=== PATIENT | female | born 1955 | race Caucasian/White ===

== ENCOUNTER 2022-01-18 10:02 | Day surgery (SDC) | payer OTHER, SELFPAY ==
[2022-01-12 14:27] VITALS: BMI 22.4
--- NOTE | 2022-01-17 09:22 | HO.ANESPROP2 ---
Documented by User: Silvia Cifuentes NP 01/17/22 09:22 HPI - Anesthesia Eval Consult details Narrative: 66yo F for Colonoscopy [facility] Past Medical History Medical History (Updated 01/12/22 @ 14:28 by Suzan Zamora RN) Elevated cholesterol HTN (hypertension) Type 2 diabetes mellitus Surgical History Surgical History (Updated 01/12/22 @ 14:23 by Suzan Zamora RN) H/O colonoscopy History of History of pubovaginal sling Social History Social History (Updated 01/12/22 @ 14:23 by Suzan Zamora RN) Patient Tobacco Use Status: Former Tobacco user Quit Date: >10 yr ago Tobacco use type: Cigarette Use of substances other than those prescribed or required for medical reasons: No Are you DNR?: No Advance Directives: No Advance Directives Information Provided: Yes Recently lost weight without trying: No Nutrition Risks: No Nutritional Risk Meds Allergies Allergy/AdvReac Type Severity Reaction Status Date / Time No Known Allergies Allergy Verified 01/12/22 14:23 Home Medications Medication Instructions Recorded Confirmed Last Taken Type amlodipine 2.5 mg tablet 7.5 mg PO DAILY 01/12/22 01/12/22 01/18/22 History atorvastatin 40 mg tablet 40 mg PO BEDTIME 01/12/22 01/12/22 Unknown History calcium 01/12/22 Unknown History hydrochlorothiazide 25 mg tablet 25 mg PO DAILY 01/12/22 01/12/22 Unknown History iron 01/12/22 Unknown History metformin 500 mg tablet 1,000 mg PO BID 01/12/22 01/12/22 Unknown History multivitamin 1 tab PO DAILY 01/12/22 01/12/22 Unknown History potassium chloride 01/12/22 Unknown History Exam Exam Date and Time: January 17, 2022921 Height,Weight and Vital Signs: Height 5 ft 1 in Weight 53.977 kg Assessment and Plan Assessment Anesthesia Assessment: Chart Reviewed Documented by User: Buffy Anderson MD 01/18/22 11:26 [facility] Past Medical History Medical History (Updated 01/12/22 @ 14:28 by Suzan Zamora RN) Elevated cholesterol HTN (hypertension) Type 2 diabetes mellitus Family History Family history of problems with anesthesia: No Surgical History Surgical History (Updated 01/12/22 @ 14:23 by Suzan Zamora RN) H/O colonoscopy History of History of pubovaginal sling History of Problems with Anesthesia: No Social History Social History (Updated 01/12/22 @ 14:23 by Suzan Zamora RN) Patient Tobacco Use Status: Former Tobacco user Quit Date: >10 yr ago Tobacco use type: Cigarette Use of substances other than those prescribed or required for medical reasons: No Are you DNR?: No Advance Directives: No Advance Directives Information Provided: Yes Recently lost weight without trying: No Nutrition Risks: No Nutritional Risk Meds Allergies Allergy/AdvReac Type Severity Reaction Status Date / Time No Known Allergies Allergy Verified 01/12/22 14:23 Home Medications Medication Instructions Recorded Confirmed Last Taken Type amlodipine 2.5 mg tablet 7.5 mg PO DAILY 01/12/22 01/12/22 01/18/22 History atorvastatin 40 mg tablet 40 mg PO BEDTIME 01/12/22 01/12/22 Unknown History calcium 01/12/22 Unknown History hydrochlorothiazide 25 mg tablet 25 mg PO DAILY 01/12/22 01/12/22 Unknown History iron 01/12/22 Unknown History metformin 500 mg tablet 1,000 mg PO BID 01/12/22 01/12/22 Unknown History multivitamin 1 tab PO DAILY 01/12/22 01/12/22 Unknown History potassium chloride 01/12/22 Unknown History Exam Height,Weight and Vital Signs: Height 5 ft 1 in Weight 53.977 kg Vital Signs Temp Pulse Resp BP Pulse Ox O2 Del Method 01/18/22 11:09 97.1 F 90 16 161/87 H 96 Room Air Pertinent Lab Results Pertinent Lab Results: Lab Results 01/18/22 Range/Units 11:17 POC Glucose 112 (60-115) mg/dL Airway Mallampati Class: I TM Dist: >3cm Neck ROM: Full Loose/Missing/Broken Teeth: No (Per patient) Heart: RRR Lungs: CTAB Assessment and Plan Assessment Anesthesia Assessment: Anesthesia Plan Discussed Final Anesthetic Review Family History of Problems with Anesthesia: No History of Problems with Anesthesia: No NPO: Yes ASA Class: II Final Preanesthetic Review: No Changes in Pt Med Stat, Meds/Allgs Chart Reviewed, Consent Obtained/Reviewed and Anes Risks/Benef Reviewed Patient Risk: Low Procedure Risk: Low Assessment/Block/Sedation in SS: Assess/Block/Sedation-SS Anesthetic Plan Anesthetic Plan: MAC: Disposition: Standard PACU
[2022-01-18 10:56] VITALS: BMI 21.7
[2022-01-18 11:09] VITALS: BP 161/87; PULSE 90; RESP 16; TEMP 36.2; O2SAT 96
[2022-01-18 11:20] LABS: Glucose, Whole Blood 112 mg/dL (60-115)
[2022-01-18] MEDS: Lactated Ringers 1,000 ML 100 ML IVCONT (11:26)
[2022-01-18] MEDS: Sodium Phosphate,Mono-Dibasic 133 ML ENEMA PR (11:27)
--- NOTE | 2022-01-18 11:34 | PC.NURSE ---
admin fleet enema at 1127am left lateral side. liyah procedure well
--- NOTE | 2022-01-18 11:37 | PC.NURSE ---
output light yellow some corn pieces noted. able to see through toilet.
--- NOTE | 2022-01-18 11:41 | PC.NURSE ---
used bathroom again and ouput is clear
--- NOTE | 2022-01-18 11:57 | MHC.SHP ---
Pre-Procedural Eval Section A Date of Service: 01/18/22 Section B Chief Complaint: screening,hx of malignant neoplasm Details of Present Illness: screening Relevant Family History (Specify if Yes): No Relevant Social History: None Present Medications: see Short Stay Collaborative assessment Medical History: No relevant PMH History of Previous Operations: No relevant previous surgery Allergies: Allergies Allergy/AdvReac Type Severity Reaction Status Date / Time No Known Allergies Allergy Verified 01/12/22 14:23 Review of Systems Sugical H&P ROS: Negative: Constitution, Cardiovascular, Respiratory, Neurological, Psychiatric, Hem-Onc, Allergic/Immunologic, Gastrointestinal, Genitourinary, Musculoskeletal, Integumentary, Endocrine and Eyes/Ears/Nose/Throat Exam Surgical H&P Exam: Normal: HEENT, Normal: Heart, Normal: Lungs, Normal: Extremities, Normal: Abdomen, Normal: Skin and Normal: Neurological Plan Diagnosis/Plan: Unchanged I have reviewed the history and physical and performed a pertinent physical examination on my patient. No changes have occurred unless specified.
--- NOTE | 2022-01-18 12:30 | P.BOP_ITS ---
Brief Operative Note Date of Service: 01/18/22 Pre-op diagnosis: screening Post-op diagnosis: same (colon polyp) Procedure: colonoscopy Surgeon: Tristian Stanford Anesthesia: MAC Was an Director Of Testing used for this Procedure?: No Estimated blood loss (mL): 2 Pathology: other Condition: stable Disposition: PACU
[2022-01-18 12:31] VITALS: BP 120/69; PULSE 77; RESP 18; TEMP 36.2
[2022-01-18 12:46] VITALS: BP 139/83; PULSE 72; RESP 16; TEMP 36.2; O2SAT 99
[2022-01-18 13:01] VITALS: BP 131/77; PULSE 69; RESP 18; TEMP 36.2; O2SAT 98
--- NOTE | 2022-01-19 11:03 | OP_ITS ---
SURGEON: Trisitan Stanford MD INDICATIONS: Colon cancer screening. PREOPERATIVE DIAGNOSIS: POSTOPERATIVE DIAGNOSIS: PROCEDURE PERFORMED: ESTIMATED BLOOD LOSS: COMPLICATIONS: ANESTHESIA: ASSISTANTS: SPECIMENS: PROCEDURE: Colonoscopy to the terminal ileum with biopsy. MEDICATIONS: Monitored anesthesia care. DESCRIPTION OF PROCEDURE: History and physical were performed. The risks and benefits of the procedure were explained to the patient. Informed consent was obtained. The patient was placed in the left lateral decubitus position. A digital rectal exam was performed and it was found to be normal. The Olympus pediatric videocolonoscope was introduced into the rectum and advanced to the cecum without difficulty. The cecum was identified by transillumination, palpation, and identification of ileocecal valve. Examination was performed. The scope was removed. She tolerated the procedure well and was taken to Recovery in stable condition. FINDINGS: The terminal ileum was examined and appeared normal. The visualized colonic mucosa was normal. There was some undigested food material and liquid stool, which limited the sensitivity examination for detection of small polyps. This was washed and suctioned as best as possible. At 65 cm from the anal verge, there was a less than 5 mm sessile polyp, which was removed with biopsy forceps. Retroflexed examination showed some hypertrophic anal papilla. No other polyps were identified. IMPRESSION: Colon polyp. RECOMMENDATION: Follow up the biopsy results. MD VERO Cervantes/JL / [id number]
== END 2022-01-18 13:35 | disposition home or self-care (01) ==
PROVIDERS: PCP Internal Medicine; Visit Provider Internal Medicine Gastroenterology
PROC: 0DJD8ZZ Inspection of Lower Intestinal Tract, Via Natural or Artificial Opening Endoscopic (ICD-10-PCS; CPT 45378; principal; 2022-01-18 11:30)
DX: Z12.11 Encounter for screening for malignant neoplasm of colon (principal); Z80.0 Family history of malignant neoplasm of digestive organs; K63.5 Polyp of colon; K62.89 Other specified diseases of anus and rectum; I10 Essential (primary) hypertension; E78.00 Pure hypercholesterolemia, unspecified; E11.9 Type 2 diabetes mellitus without complications; Z87.891 Personal history of nicotine dependence; Z79.84 Long term (current) use of oral hypoglycemic drugs; Z79.899 Other long term (current) drug therapy
CPT/HCPCS: 45380; 82947; 88305